=== PATIENT | male | born 1985 | race Caucasian/White ===

== ENCOUNTER 2019-01-16 20:44 | Emergency (ER) | payer MEDICAID, OTHER ==
[~2019-01-16] VITALS: Ht 193 cm; Wt 163.3 kg
[2019-01-16] MEDS ORDERED: TERB30CR22 TP (22:00)
[2019-01-16 22:13] VITALS: BP 158/84
== END 2019-01-16 22:10 | disposition home or self-care (01) ==
LOC: ER 20:45
DX: B35.6 Tinea cruris (principal); E66.9 Obesity, unspecified; Z79.899 Other long term (current) drug therapy; Z98.890 Other specified postprocedural states
CPT/HCPCS: 99283

== ENCOUNTER 2019-01-31 23:55 | Emergency (ER) | payer OTHER ==
[~2019-01-31] VITALS: Ht 193 cm; Wt 170.4 kg
[~2019-01-31 23:55] MED LIST: TERB30CR22 TP
[2019-02-01 01:36] VITALS: BP 138/92
== END 2019-02-01 00:40 | disposition home or self-care (01) ==
LOC: ER 23:56
DX: R21 Rash and other nonspecific skin eruption (principal); L98.9 Disorder of the skin and subcutaneous tissue, unspecified; Z98.890 Other specified postprocedural states; Z79.899 Other long term (current) drug therapy
CPT/HCPCS: 99281

== ENCOUNTER 2021-05-09 18:32 | Emergency (ER) | payer SELFPAY ==
[~2021-05-09] VITALS: Ht 193 cm; Wt 135.8 kg
[~2021-05-09 18:32] MED LIST changes: -TERB30CR22 TP; +TERB30CR8 TP
[2021-05-09 18:33] VITALS: BP 170/100
[2021-05-09] MEDS ORDERED: LIDOcaine 1% 30ml preserv. free vial IJ ONE (18:40)
[2021-05-09] MEDS ORDERED: TETanus/Pertussis (Acell)/Diphther VAC/PF (Tdap-Adult) 0.5ml syringe IMVAC ONE (18:40)
== END 2021-05-09 19:42 | disposition home or self-care (01) ==
LOC: ER 18:32
DX: S61.012A Laceration without foreign body of left thumb without damage to nail, initial encounter (principal); Z98.890 Other specified postprocedural states; Z79.899 Other long term (current) drug therapy; Z20.3 Contact with and (suspected) exposure to rabies; W45.8XXA Other foreign body or object entering through skin, initial encounter; Y93.89 Activity, other specified; Y92.89 Other specified places as the place of occurrence of the external cause; Y99.8 Other external cause status
CPT/HCPCS: 12001; 73120; 90471; 90715; 99283

== ENCOUNTER 2022-09-08 13:14 | Emergency (ER) | payer MEDICAID ==
[~2022-09-08] VITALS: Ht 193 cm; Wt 181.8 kg
[2022-09-08 13:20] VITALS: BP 177/123
[2022-09-08] MEDS ORDERED: IBUP-1986 PO (14:44)
[2022-09-08] MEDS ORDERED: CYCL-1 PO (14:44)
== END 2022-09-08 15:01 | disposition home or self-care (01) ==
LOC: ER 13:14
DX: M54.50 Low back pain, unspecified (principal)
CPT/HCPCS: 99283

== ENCOUNTER 2023-02-03 13:42 | Emergency (ER) | payer SELFPAY ==
[~2023-02-03] VITALS: Ht 195.6 cm; Wt 188.6 kg
[~2023-02-03 13:42] MED LIST changes: +CYCL-1 PO; +IBUP-1986 PO
[2023-02-03 14:08] LABS: BASOPHILS # (AUTO) 0.1 X10'3 (0-0.2); BASOPHILS % (AUTO) 0.5 % (0-1); EOSINOPHILS # (AUTO) 0.4 X10'3 (0-0.9); EOSINOPHILS % (AUTO) 3.2 % (0-6); HEMATOCRIT 44.5 % (42.0-52.0); LYMPHOCYTES # (AUTO) 4.3 X10'3 (1.1-4.8); LYMPHOCYTES % (AUTO) 37.8 % (21-51); MEAN CORPUSCULAR HEMOGLOBIN 30.5 PG (27.0-31.0); MEAN CORPUSCULAR HGB CONC 33.6 g/dL (33.0-36.5); MEAN CORPUSCULAR VOLUME 90.7 FL (78-98); MEAN PLATELET VOLUME 7.3 FL (7.4-10.4); MONOCYTES # (AUTO) 1.3 X10'3 (0-0.9); MONOCYTES % (AUTO) 11.9 % (2-12); NEUTROPHILS # (AUTO) 5.3 X10'3 (1.8-7.7); NEUTROPHILS % (AUTO) 46.6 % (42-75); PLATELET COUNT 297 X10'3 (140-440); RED BLOOD COUNT 4.91 X10'6 (4.70-6.10); RED CELL DISTRIBUTION WIDTH 13.1 % (11.5-14.5); WHITE BLOOD COUNT 11.3 X10'3 (4.5-11.0)
[2023-02-03] MEDS ORDERED: hydrALAZINE 20mg/ml inj. IV ONE (14:25)
[2023-02-03 14:27] LABS: ALANINE AMINOTRANSFERASE 41 U/L (12-78); ALBUMIN 3.7 G/DL (3.4-5.0); ALBUMIN/GLOBULIN RATIO 0.9 (1.1-1.5); ALKALINE PHOSPHATASE 95 IU/L (46-116); ANION GAP 8 (8-16); ASPARTATE AMINO TRANSFERASE 24 U/L (10-37); BILIRUBIN,TOTAL 0.3 MG/DL (0.1-1.0); BLOOD UREA NITROGEN 12 MG/DL (7-18); BUN/CREATININE RATIO 14.1 (10.0-20.0); CHLORIDE 102 MMOL/L (99-107); CREATININE 0.85 MG/DL (0.60-1.10); GLUCOSE 98 MG/DL (70-104); POTASSIUM 3.7 MMOL/L (3.5-5.1); SODIUM 138 MMOL/L (135-145); TOTAL CARBON DIOXIDE 27.6 MMOL/L (24-32); TOTAL PROTEIN 7.7 G/DL (6.4-8.2); eCRCL 147 ML/MIN; eGFR > 90 ML/MIN
[2023-02-03 14:33] LABS: PRO BRAIN NATRIURETIC PEPTIDE 178 PG/ML (0-125)
[2023-02-03 14:41] VITALS: PULSE 87; RESP 17; TEMP 97.7; O2SAT 99
[2023-02-03] MEDS ORDERED: AMLO5TAB4 PO (15:36)
[2023-02-03 15:39] VITALS: BP 182/122
== END 2023-02-03 15:50 | disposition home or self-care (01) ==
LOC: ER 13:43
DX: I10 Essential (primary) hypertension (principal); H53.8 Other visual disturbances; Z79.899 Other long term (current) drug therapy
CPT/HCPCS: 36415; 71045; 80053; 83880; 84484; 85025; 93005; 96374; 99285; J0360

== ENCOUNTER 2024-04-12 20:23 | Emergency (ER) | payer MEDICAID ==
[~2024-04-12] VITALS: Ht 193 cm; Wt 178.3 kg
[~2024-04-12 20:23] MED LIST changes: +AMLO5TAB4 PO
[2024-04-12 20:36] VITALS: BP 223/153; TEMP 98
[2024-04-12] MEDS ORDERED: PENI500T2 PO (20:56)
[2024-04-12] MEDS ORDERED: HYDR-3965 PO (20:56)
[2024-04-12] MEDS ORDERED: IBUP-1984 PO (20:56)
[2024-04-12] MEDS: HYDROcodone/acetaminophen 5mg/325mg tablet PO ONE (21:03)
[2024-04-12] MEDS: ibuprofen tablet 400 MG TABLET PO ONE (21:03)
[2024-04-12] MEDS: penicillin V potassium 500mg tablet PO STA (21:13)
[2024-04-12 21:20] VITALS: PULSE 80; RESP 18; O2SAT 98
== END 2024-04-12 21:22 | disposition home or self-care (01) ==
LOC: ER 20:24
DX: K04.7 Periapical abscess without sinus (principal); Z98.890 Other specified postprocedural states
CPT/HCPCS: 99284

== ENCOUNTER 2024-12-07 21:37 | Inpatient (IN) | payer MEDICAID, OTHER ==
[~2024-12-07] VITALS: Ht 193 cm; Wt 185.2 kg
--- NOTE | 2024-12-07 21:55 | ELECTROCARDIOGRAPH REPORT ---
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
--- NOTE | 2024-12-07 22:29 | RADIOLOGY REPORT ---
CHEST RADIOGRAPH Indication: CP Technique: 1 view Comparison: DI CHEST,SINGLE VIEW on DOS: 02/03/23 FINDINGS: Lines and Tubes: None. Lungs/Pleura: No focal consolidation, pleural effusion or pneumothorax. Interstitial opacities appear unchanged. Cardiomediastinum: Unremarkable. Other: No acute osseous abnormality. IMPRESSION: 1. No acute cardiopulmonary abnormality.
[2024-12-07 22:30] LABS: MEAN PLATELET VOLUME 7.6 FL (7.4-10.4); RED CELL DISTRIBUTION WIDTH 13.8 % (11.5-14.5)
[2024-12-07 22:54] LABS: CREATININE 1.14 MG/DL (0.60-1.10); PRO BRAIN NATRIURETIC PEPTIDE 1184 PG/ML (0-125); TOTAL CARBON DIOXIDE 27.7 MMOL/L (24-32); eCRCL 105 ML/MIN; eGFR 71 ML/MIN
--- NOTE | 2024-12-07 23:25 | Physician Documentation ---
History of Present Illness ~ Chief Complaint: Hypertension Stated Complaint: HIGH BLOOD PRESSURE Time Seen by MD: 23:13 Primary Medical Doctor: NONE HPI Patient presents to the emergency room for concerns of blood pressure. Patient has history of high blood pressure was seen a proximally one year ago that has given some amlodipine but never followed up. He notes that has day-to-day blood pressure ranges from about 242-90 systolic. He did not noticed that over the past few days he has had some blurred vision which got worse in the lobby. Significant other at bedside also endorses that has not quite acting like himself. Denies chest pain or headache. Medication Reconciliation Allergies: Coded Allergies: No Known Allergies (Unverified , 12/07/24) Scheduled Amlodipine Besylate (Norvasc), 1 TAB PO DAILY Cyclobenzaprine* (Cyclobenzaprine*), 1 TAB PO Q8H Ibuprofen (Ibuprofen), 1 TAB PO Q8H Terbinafine Hcl (Terbinafine Hcl), 30 GM TP BID Past Medical History Past Medical History: No Pertinent History Past Surgical History: orthopedic surgeries Drug Use: none Lives with: Spouse Lives In: Home Review of Systems ROS All review of systems negative except as per HPI Physical Exam Vital Signs: Temperature: 97.4, Source: Oral, Heart Rate: 104, Respiratory Rate: 16, BP: 211/143, Pulse Oximetry: 97, Weight: 186.360 Oxygen Flow Rate: 0 Physical Exam General: Patient is awake, alert, oriented x4 in no acute distress. Anxious Head: Normocephalic and atraumatic. Eyes: Conjunctival normal. EOMI. PERRL. ENT: Mucous membranes moist. Neck: Supple, trachea is midline. Chest: Clear to auscultation bilaterally without rales, rhonchi, or wheezes. There is no accessory muscle use or retractions. Cardiac: RRR without murmurs, gallops, or rubs. Abd: Soft, nondistended, nontender, with normoactive bowel sounds. No guarding, rebound, or rigidity. Extremities: Normal strength. Normal range of motion. No deformities or edema. Back: No midline spinal or CVA tenderness. Skin: Warm and dry with no significant rash appreciated. Neuro: Cranial nerves II-XII grossly intact. No focal neuro deficits. Progress Progress Note I have personally spoken with the travel agency manager regarding patient's hypertensive emergency. She requests CT scan of the head given patient's visual changes Results/Orders Results/Orders Orders - CARLYLE NOLASCO MD Chest,Single View (12/07/24 22:09) Monitor (12/07/24 21:57) Saline Lock (12/07/24 21:57) Oxygen (12/07/24 21:57) Hs Troponin I W Calculations (12/07/24 23:57) Hs Troponin I W Calculations (12/08/24 00:57) Nicardipine-Ns 40mg/200ml Ivpb (Cardene- (12/07/24 23:20) Completed Orders - CARLYLE NOLASCO MD Electrocardiogram (12/07/24 ) Chest,Single View (12/07/24 22:09) Cbc/Diff (12/07/24 21:57) BMP (12/07/24 21:57) PBNP (12/07/24 21:57) Hs Troponin I W Calculations (12/07/24 21:57) Hydralazine Tablet (Apresoline 10mg Tabl (12/07/24 22:00) Hydralazine Tablet (Apresoline 10mg Tabl (12/07/24 22:00) Medications Received in ER Medications (Trade) Dose Ordered Sig/Kristina Route PRN Reason Start Time Stop Time Status Last Admin Dose Admin (Apresoline 10mg tablet) 10 mg ONCE PO 12/07/24 22:00 12/07/24 22:08 DC 12/07/24 22:03 10 MG Vital Signs 12/07/24 12/07/24 12/07/24 12/07/24 21:46 22:03 22:52 23:17 Temp 97.4 Pulse 106 102 80 104 Resp 16 18 16 B/P (MAP) 223/153 205/134 (157) 211/143 (165) Pulse Ox 99 99 97 O2 Flow Rate 0 Laboratory Tests Test 12/07/24 22:10 White Blood Count 10.5 Red Blood Count 4.76 Hemoglobin 14.5 Hematocrit 42.3 Mean Corpuscular Volume 88.9 Mean Corpuscular Hemoglobin 30.6 Mean Corpuscular Hemoglobin Concent 34.4 Red Cell Distribution Width 13.8 Platelet Count 276 Mean Platelet Volume 7.6 Neutrophils (%) (Auto) 71.7 Lymphocytes (%) (Auto) 18.0 L Monocytes (%) (Auto) 7.9 Eosinophils (%) (Auto) 1.6 Basophils (%) (Auto) 0.8 Neutrophils # (Auto) 7.5 Lymphocytes # (Auto) 1.9 Monocytes # (Auto) 0.8 Eosinophils # (Auto) 0.2 Basophils # (Auto) 0.1 CBC Comment Sodium Level 140 Potassium Level 3.5 Chloride Level 102 Carbon Dioxide Level 27.7 Anion Gap 10 Blood Urea Nitrogen 20 H Creatinine 1.14 H Estimated GFR/1.73 m2 71 BUN/Creatinine Ratio 17.5 Glucose Level 147 H Calcium Level 8.6 Troponin I High Sensitivity 95 *H Pro-B-Type Natriuretic Peptide 1184 H Albumin 3.6 Chemistry Comments EKG/XRAY/CT/US/VASC/MRI EKG : Additional Comment EKG interpreted by myself shows time of 03/21/2042, rate 106, sinus tachycardia, normal axis, nonspecific ST-T changes Chest X-Ray : Additional Comments Exam: CHEST,SINGLE VIEW CHEST RADIOGRAPH Indication: CP Technique: 1 view Comparison: DI CHEST,SINGLE VIEW on DOS: 02/03/23 FINDINGS: Lines and Tubes: None. Lungs/Pleura: No focal consolidation, pleural effusion or pneumothorax. Interstitial opacities appear unchanged. Cardiomediastinum: Unremarkable. Other: No acute osseous abnormality. IMPRESSION: 1. No acute cardiopulmonary abnormality. Medical Decision Making Findings Patient presented to the emergency room for evaluation of blood pressure. Differentials include but are not limited to hypertensive urgency hypertensive emergency, uncontrolled hypertension, end-organ damage, kidney failure therefore emergent labs ordered. Labs concerning for elevation of troponins and decreased renal function compared to previous. Along with the patient's blood pressure and changes of vision and mild alteration in patient's personality he is suffering from hypertensive emergency and Cardene drip has been initiated and we will admit to the ICU. He had denies any chest pain and he had not feel patient is suffering from ACS but rather demand ischemia from hypertensive emergency. For this reason I have not started heparin. Aspirin administered. Departure Admitted to Inpatient Unit: yes, to travel agency manager Impression: Primary Impression: Hypertensive emergency Additional Impression: Elevated troponin Condition: Critical Referrals: NO PRIMARY CARE PROVIDER (PCP) Critical Care Note Total Time (mins): 45 Critical Care Note The very real possibility of a deterioration of this patient's condition re quired the highest level of my preparedness for sudden, emergent intervention. I provided critical care services, which included medication orders, frequent reevaluations of the patient's condition and response to treatment, ordering and reviewing test results, and discussing the case with various consultants. Excludes time spent performing separately billable procedures. The critical care time associated with the care of the patient was 45 minutes not counting procedures Signature Scribe Signature: No scribe Attestation: The note accurately reflects work and decisions made by me.Carlyle Nolasco MD 12/07/24 23:25 CARLYLE NOLASCO MD Dec 07, 2024 23:25
[2024-12-08] VITALS (28 sets, daily range): BP systolic 128–164; BP diastolic 67–116; PULSE 74–95; RESP 10–49; TEMP 98–98.6; O2SAT 89–99
[2024-12-08] MEDS: niCARDipine-NS 40mg/200ml IVPB 200 ML IV SCH (00:03)
--- NOTE | 2024-12-08 00:08 | RADIOLOGY REPORT ---
EXAM: CT CT HEAD INDICATION: vision changes TECHNIQUE: CT of the head without intravenous contrast. Radiation Dose : 1. Head: CT Dose: CTDI volume is 69 mGy. Dose-length product is 1373 mGy*cm The dose indicators for CT are the volume Computed Tomography (CT) Dose Index (CTDIvol) and the Dose Length Product (DLP), and are measured in units of mGy and mGy-cm, respectively. These indicators are not patient dose, but values generated from the CT scanner acquisition factors. The report includes radiation exposure data for exposures received during this examination. COMPARISON: None FINDINGS: Brain: No acute hemorrhage, mass effect, or cerebral edema. CSF Spaces: Size and morphology within normal limits. Bones/Soft Tissues: No acute findings. Orbits/Sinuses/Mastoids: Unremarkable as visualized. IMPRESSION: 1. No acute intracranial abnormality. Radiation optimization: All CT scans at this facility use at least one of these dose optimization techniques: automated exposure control mA and/or kV adjustment per patient size (includes targeted exams where dose is matched to clinical indication) or iterative reconstruction.
[2024-12-08] MEDS ORDERED: ondansetron/PF 4mg/2ml inj IV PRN (02:55)
--- NOTE | 2024-12-08 03:11 | HISTORY AND PHYSICAL ---
History of Present Illness End CC ~ Admission Diagnosis:.: hypertensive emergency History of Present Illness 39 year old male with htn non compliant with meds admitted with hypertensive urgency. The patient was found to have a SBP of >200 with complaints of blurry vision. He was started on a nicardipine infusion. Allergies: Coded Allergies: No Known Allergies (Unverified , 12/07/24) Home Medications Home Medications Active Past Medical History Past Medical History: No Pertinent History, Hypertension Past Surgical History Past Surgical History: no surgical history, orthopedic surgeries Past Social History Smoking: Non-Smoker Drug Use: None Lives with: Spouse Lives In: Home Advance Care Planning Advanced Care planning: N/A Review of Systems All Other Systems at this time: Reviewed and Negative Physical Exam Last Vital Signs recorded: Temperature: 97.4, Source: Oral, Heart Rate: 100, Respiratory Rate: 43, BP: 176/105, Pulse Oximetry: 94, Weight: 186.360 Results Diagram Lab Result Diagram: 12/07/24 2210 12/07/242209 Assessment/Plan Additional Plan Plan: start nicardipine infusion with goal SBP 160-180 restart home amlodipine counseling on compliance with medications lovenox for dvt ppx CCT 51 min using HIPPA compliant A/V technology MADAN NARANJO MD Dec 08, 2024 03:10
[2024-12-08] MEDS: niCARDipine-NS 40mg/200ml IVPB 200 ML IV PRN (06:47)
--- NOTE | 2024-12-08 11:15 | PROGRESS NOTE- Residence ---
Progress Note - Resident Providers to CC Resident Creating Document: TALON ANAND, RES ~ Antibiotic Timeout Antibiotic Ordered?: No Subjective Patient seen and examined at the bedside today. Patient reports that the blurring of his vision and headaches have improved. Currently reported that he has a some/minimal amount of headache at the moment. The patient also reports that he has had symptoms of worsening shortness of breath with a orthopnea, paroxysmal nocturnal dyspnea since the past few months that has been worsening. He mentioned that he was 1st informed about having high blood pressure almost a year ago at the ER but has not started any medications since then and has not established with a primary care physician. Reported that he has been monitoring his blood pressure and is trying to eat healthy and lose weight to control his blood pressure. He currently denies any chest pain, palpitations, dizziness, nausea, vomiting. Objective Vital Signs Date Time Temp Pulse Resp B/P (MAP) Pulse Ox O2 Delivery O2 Flow Rate FiO2 12/08/24 10:00 76 10 96 Nasal Cannula 2.0 12/08/24 09:00 147/91 (109) 12/08/24 08:00 98.2 Result Diagram: 12/07/24220912/07/242209 General: Obese male. Awake and Alert, no acute distress. HEENT: Conjunctiva pink, Sclera clear, Mucus Membranes moist. Neck: Supple without masses and tenderness. Resp: Unlabored. Lungs clear to auscultation bilaterally. Heart: Regular Rate and rhythm, normal S1 and S2 without murmur, rub or gallop. Abdomen: Soft and non tender no organomegaly Extremities: No cyanosis,clubbing or edema. Skin: Warm and Dry. Neurology: Cranial nerves 2-12 intact. No motor and sensory deficits. Musculoskeletal: No deformities or restricted range of movements. Psychiatric: Normal mood and affect. Assessment Assessment 39 years old male with history of hypertension is admitted in the ICU for the management of acute hypertensive emergency. The patient was started on IV nicardipine drip. His blood pressure is currently well-controlled and is planned to be downgraded from the ICU to the PCU. Plan Plan Hypertensive emergency Patient reported symptoms of dizziness, blurry vision and headaches prior to the arrival. CT scan of the head was done which was negative for any acute intracranial abnormalities. Chest x-ray shows bilateral interstitial opacities. The patient's CBC and CMP does not show significant abnormalities. Follow up with the ECHO. He was started on IV nicardipine drip at 5 mg/hour. Starting the patient on a p.o. amlodipine 10 mg daily and labetalol 200 mg b.i.d. The patient's blood pressure is currently under control. We will discontinue IV nicardipine drip and monitor. Spoke to the patient about lifestyle modifications including diet and exercise. Also spoke with the patient regarding the importance of establishing a PCP and maintaining compliance with the antihypertensive medication. Type 2 UT Most likely due to demand ischemia in view of hypertensive emergency. Continue close monitoring of the patient's vitals. Continue telemetry monitoring. CODE STATUS: Full code DVT prophylaxis: Lovenox GI prophylaxis: None Diet: Heart healthy Disposition: Patient is stable, vitals under control. He is planned to be downgraded to the PCU for further care and evaluation. Talon Anand MD Internal Medicine Resident, PGY-3 Date of Service: Dec 08, 2024 Billing Provider: LAKESHIA HUTSON MD,TALON TOBAR, RES Dec 08, 2024 11:15
--- NOTE | 2024-12-08 11:17 | PROGRESS NOTE- Residence ---
Progress Note - Resident Providers to CC ~ Objective Vital Signs Date Time Temp Pulse Resp B/P (MAP) Pulse Ox O2 Delivery O2 Flow Rate FiO2 12/08/24 10:00 76 10 96 Nasal Cannula 2.0 12/08/24 09:00 147/91 (109) 12/08/24 08:00 98.2 Result Diagram: 12/07/24220912/07/242209 Date of Service: Dec 08, 2024 Billing Provider: CARA BLAS, RES Dec 08, 2024 11:17
[2024-12-08] MEDS: hydrALAZINE 20mg/ml inj. IV PRN ×2 (13:42→16:08)
[2024-12-08] MEDS ORDERED: NO HOME MEDS (16:18)
--- NOTE | 2024-12-08 17:40 | PROGRESS NOTE ---
Daily Progress Note Providers to CC Chief complaint, elevated blood pressure, headaches ~ Central Line/PICC still needed: No Marin-Non Protocol Marin Indications Met/Not Met: F/C Indications Not Met Antibiotic Timeout Antibiotic Ordered?: Yes MRSA Education MRSA Education Provided to pt: Yes Subjective As above Objective Vital Signs Date Time Temp Pulse Resp B/P (MAP) Pulse Ox O2 Delivery O2 Flow Rate FiO2 12/08/24 17:06 98.0 88 11 162/113 (129) 98 Room Air 12/08/24 11:45 0.0 Vital signs, stable ,afebrile. High blood pressure noticed Pulse Oximetry reflects adequate oxygenation. BMI is forty-nine, weight 185 kg General: well developed, well nourished. Awake , alert, and oriented x4, resting comfortably in the bed, in no acute distress . Skin: Warm, dry, no pallor, no rash or petechiae. HEENT: Atraumatic, normocephalic, EOMI, anicteric sclera B; pink conjunctiva; PERRLA, normal oropharynx, moist oral and nasal mucosa. Tympanic membrane , nose , throat clear. Neck: Trachea midline. Supple, full range of motion, no JVD, bruit , hepatojugular reflex , lymphadenopathy or masses, or other lesions Cardiac: High blood pressure noticed, Regular rhythm, regular rate no murmurs, rubs, or gallops. Normal S1 and S2, no S3 noticed. PMI is normal. Respiratory: Equal breath sounds bilaterally, no tachypnea; lungs clear to auscultation bilaterally, no wheezing ,rub or rales, or crackles. Chest wall is symmetric and without deformity. No signs of trauma. Chest wall is nontender. No signs of respiratory distress. Resonance is normal upon percussion bilaterally. Gastrointestinal: Abdomen symmetric, non-distended, soft, non-tender, normal bowel sounds x4 quadrant, normoactive, no hepatosplenomegaly , no masses , no bruit, no flank pain bilaterally. No voluntary guarding, rebound, or rigidity. No tenderness to percussion. No pulsatile masses. Equal femoral pulses. No Campbell's sign or McBurney point tenderness. Back; no CVA tenderness bilaterally, no deformities. Neck and back are without deformity as well. No tenderness noted on palpation of the spinous processes. Spinous processes are midline. Cervical, thoracic, and lumbar paraspinal muscles are not tender and are without spasm. : normal external genitalia, without lesions, swelling, masses or tenderness. Musculoskeletal: Extremities, normal range of motion, non-tender, muscle strength 5/5 x 4. Negative Homans signs bilaterally on lower extremity. Distal pulses full symmetrical, no clubbing, cyanosis , edema. Neurological: Speech is clear, alert, and oriented x 4. No motor or sensory deficit, deep tendon reflexes normal, cerebellar intact. Cranial nerves II-XII intact. Psych: Alert and or appropriate, normal affect. Vascular: Good distal pulses, which are equal x4; capillary refill less than 2 seconds. Lymphatic, no lymphadenopathy. Result Diagram: 12/07/24220912/07/242209 Problem\Assessment\Plan Assessment/ Plan Morbid obesity BMI 49 Hypertensive emergency Patient reported symptoms of dizziness, blurry vision and headaches prior to the arrival. CT scan of the head was done which was negative for any acute intracranial abnormalities. MRI of the head pending Chest x-ray shows bilateral interstitial opacities. The patient's CBC and CMP does not show significant abnormalities. Follow up with the ECHO. He was started on IV nicardipine drip at 5 mg/hour. Starting the patient on a p.o. amlodipine 10 mg daily and labetalol 200 mg b.i.d. The patient's blood pressure is currently under control. We will discontinue IV nicardipine drip and monitor. Spoke to the patient about lifestyle modifications including diet and exercise. Also spoke with the patient regarding the importance of establishing a PCP and maintaining compliance with the antihypertensive medication. Diastolic CHF in exacerbation, patient on lisinopril, Lasix Type 2 ID, on aspirin, heparin prophylactic dose, lisinopril Most likely due to demand ischemia in view of hypertensive emergency. Continue close monitoring of the patient's vitals. Continue telemetry monitoring. Additional lab work pending Nutrition consult CODE STATUS: Full code DVT prophylaxis: Lovenox GI prophylaxis: None Diet: Heart healthy Sepsis Screening Reassessment Date: Dec 08, 2024 Date of Service: Dec 08, 2024 Billing Provider: TYRA CHOWDHURY MD Common Visit Codes: [id number] INP/OBS CARE(HIGH) TYRA CHOWDHURY MD Dec 08, 2024 17:40
[2024-12-08 18:40] LABS: PHOSPHORUS 4.1 MG/DL (2.3-4.5)
--- NOTE | 2024-12-08 18:44 | CARDIOLOGY REPORT ---
APPROVED REPORT EXAM: Comprehensive 2D, Doppler, and color-flow Echocardiogram. Patient Location: 2006 Heart Rate: 91 bpm Indications Cardiomegaly HS Troponin: 95, 95, 90, 88 ProBNP: 1184 NO GEAR HOBBER NO Previous ECHO 2D Dimensions LA Diam 4.5 cm IVSd 1.6 (0.7-1.1cm) LVDd 4.6 cm PWd 1.5 (0.7-1.1cm) IVSs 1.7 (0.8-1.2cm) LVDs 3.2 (2.5-4.0cm) PWs 2.5 (0.8-1.2cm) LVOT Diameter 2.26 (1.8-2.4cm) LVEF(%) 59.6 (>50%) Ao Asc Diam. 3.35 cm IVC 20.98 mm FS (%) 31.6 % SV 59.3 ml CO 5.4 L/min M-Mode Dimensions Aortic Root 4.37 (2.2-3.7cm) Aortic Cusp Exc 2.16 (1.5-2.0cm) MV EPSS 0.8 (<0.5cm) Aortic Valve AoV Peak Colby. 161.8 cm/s AoV VTI 28.9 cm AO Peak GR. 10.5 mmHg AO Mean GR. 6 mmHg LVOT VTI 24.85 cm LVOT Peak Colby. 111.3 cm/s JUSTIN(VTI)/BSA 3.46 cm2/m2 JUSTIN (VTI) 3.46 cm2 AV DI 0.86 % Mitral Valve MV E Velocity 85.2 cm/s MV Peak Gr. 5 mmHg MV DECEL TIME 120 ms MV A Velocity 43.3 cm/s MV PHT 52 ms E/A Ratio 2.0 MVA (PHT) 4.23 cm2 MV VMax 107.9 cm/s TDI Lateral E' P. V 9.88 cm/s E/Lateral E' 8.6 Tricuspid Valve TR P. Velocity 251 cm/s RAP ESTIMATE 10 mmHg TR Peak Gr. 25 mmHg RVSP 35 mmHg LEFT VENTRICLE Normal LV size and function. Moderate concentric hypertrophy. LVEF is 60-65%. RIGHT VENTRICLE RV is normal size and function. Elevated right heart pressures with an RVSP of 35 mmHg. ATRIA Left atrium is moderately dilated. AORTIC VALVE Trileaflet AV appears mildly sclerotic without stenosis. No insufficiency. MITRAL VALVE Mild mitral annular calcification without stenosis. Trivial regurgitation. TRICUSPID VALVE The tricuspid valve is normal in structure. PULMONIC VALVE Pulmonic valve is grossly normal in structure with physiologic insufficiency. GREAT VESSELS The aortic root is normal in size. The ascending aorta is normal in size. The IVC is normal in size and collapses >50% with inspiration. PERICARDIUM Normal pericardium. No effusion. Other Information Study Quality: Adequate Conclusion Normal LV size and function. Moderate concentric hypertrophy. LVEF is 60-65%. RV is normal size and function. Elevated right heart pressures with an RVSP of 35 mmHg. Left atrium is moderately dilated. Trileaflet AV appears mildly sclerotic without stenosis. No insufficiency. Mild mitral annular calcification without stenosis. Trivial regurgitation. The tricuspid valve is normal in structure. Normal pericardium. No effusion.
[2024-12-08] MEDS: enoxaparin 40mg/0.4ml syringe SQ SCH (20:00)
--- NOTE | 2024-12-08 21:18 | [facility] CONSULT REPORT ---
[facility] Procedure Note [facility] Procedure Note Consult [facility] Note # Demographics Consult Type: General Neurology Patient Location: Inpatient First Name: Mario Last Name: Dilip Date of : 1985 Age: 39 Gender: Male Facility: [facility] Time of Initial Page (): 12/08/2024 20:39 First Contact with Site (): 12/08/2024 20:39 # HPI History: LKN- yesterday around 1500 Patient came in with headache, blurry vision, dizziness and numbness on the left side. Patient currently admitted for hypertensive crisis. Neurology was consulted for stroke evaluation. H/O HTN # Scores Time of exam and NIHSS (): 12/08/2024 21:00 Level of Consciousness 1a: [0] = Alert; keenly responsive LOC Questions 1b: [0] = Answers both questions correctly LOC Commands 1c: [0] = Performs both tasks correctly Best Gaze 2: [0] = Normal Visual 3: [0] = No visual loss Facial Palsy 4: [0] = Normal symmetrical movements Motor Arm Left 5a: [0] = No drift Motor Arm Right 5b: [0] = No drift Motor Leg Left 6a: [1] = Drift Motor Leg Right 6b: [0] = No drift Limb Ataxia 7: [0] = Absent Sensory 8: [0] = Normal Best Language 9: [0] = No aphasia Dysarthria 10: [0] = Normal Extinction and Inattention 11: [0] = No abnormality NIHSS Total: 1 # Assessment Impression: - Ischemic Stroke (Acute) NIH stroke scale is 1. Patient was noted to have subtle left leg weakness. Overall he is a well-built rakel and I suspect most likely reason for his initial symptoms of headache and dizziness were hypertensive emergency. But considering this focal finding, it is reasonable to get an MRI brain without contrast to rule out a stroke. Differential Diagnosis: - Stroke Mimic # Plan Thrombolytic/Intervention: NOT IV Thrombolysis or IA Intervention candidate Thrombolytic Exclusion: > 4.5 hours Intraarterial Exclusion: - no large vessel occlusion (LVO) Target Blood Pressure: - SBP < 180 - SBP > 140 Labs: - hemoglobin A1c - lipid panel - comprehensive metabolic panel - CBC - ua - ESR Imaging: (urgency: routine): - MRI Brain without contrast - US carotid Diagnostic Test: - echo with bubble study Therapy/Evaluation: - NPO until swallow evaluation - PT/OT evaluation Medication: - aspirin 81 mg PLUS clopidogrel (Plavix) 75 mg for 21 days, then monotherapy therafter - start statin with goal of LDL < 70 Other: - If patient has any neurological deterioration please call me back immediately - permissive hypertension - LDL < 70 - telemetry monitoring - will need event monitor or loop recorder as outpatient if atrial fibrillation not found as inpatient - neurology referral as outpatient - I have discussed my recommendations with the referring provider - would not pursue stroke work-up if MRI is negative Disposition: continue admission # Demographics First Name: Mario Last Name: Dilip Facility: [facility] Neuro Consult Order placed for: Yes VALARIE PARR MD Dec 08, 2024 21:17
[2024-12-09] VITALS (8 sets, daily range): BP systolic 105–145; BP diastolic 57–104; PULSE 70–79; RESP 11–19; TEMP 97.9–98.4; O2SAT 93–96
[2024-12-09] MEDS ORDERED: PERFLUTREN PROTEIN-A MICROSPHR (Optison) 0.22 MG/ML 3ML VIAL IV ONE (05:25)
[2024-12-09] MEDS: aspirin 81mg, enteric-coated 1 TAB TABLET.DR PO SCH (08:33)
[2024-12-09 09:37] LABS: URINE AMPHETAMINE SCREEN NEGATIVE (Neg); URINE BARBITUATE SCREEN NEGATIVE (Neg); URINE BENZODIAZEPINES SCREEN NEGATIVE (Neg); URINE CANNABINOID SCREEN NEGATIVE (Neg); URINE COCAINE SCREEN NEGATIVE (Neg); URINE METHADONE SCREEN NEGATIVE (Neg); URINE OPIATE SCREEN NEGATIVE (Neg); URINE PHENCYCLIDINE SCREEN NEGATIVE (Neg)
--- NOTE | 2024-12-09 09:54 | VASCULAR REPORT ---
CLINICAL HISTORY: Stroke TECHNIQUE: Shetty-scale, Color and Duplex Doppler imaging of the bilateral carotid systems was performed. COMPARISON: None Findings: Right Carotid system: There is no plaque present in the right carotid system. Left Carotid system: There is no plaque present in the left carotid system. The following flow velocities were obtained (cm/sec). Right Carotid System: ICA PSV: 101 cm/sec ICA PDV: 22 cm/sec ICA/CCA Ratio: 1.2 Left Carotid System: ICA PSV: 78 cm/sec ICA PDV: 33 cm/sec ICA/CCA Ratio: 0.8 The right and left common carotid and external carotid arteries are patent. There is antegrade flow in both vertebral arteries and external carotid arteries. IMPRESSION: NORMAL RIGHT CAROTID SYSTEM. NORMAL LEFT CAROTID SYSTEM. Estimation of carotid stenosis is based on velocity parameters that correlate the residual internal carotid diameter with that of the more distal vessel in accordance with the [place] Symptomatic Carotid Endarterectomy Trial (NASCET).
--- NOTE | 2024-12-09 19:25 | PROGRESS NOTE ---
Daily Progress Note Providers to CC ~ no new complaint today resting comfortably in the bed Central Line/PICC still needed: No Marin-Non Protocol Marin Indications Met/Not Met: F/C Indications Not Met Antibiotic Timeout Antibiotic Ordered?: No MRSA Education MRSA Education Provided to pt: No Subjective As above Objective Vital Signs Date Time Temp Pulse Resp B/P (MAP) Pulse Ox O2 Delivery O2 Flow Rate FiO2 12/09/24 15:00 98.4 79 11 113/65 (81) 96 Room Air 12/08/24 11:45 0.0 Vital signs, stable ,afebrile. Pulse Oximetry reflects adequate oxygenation. General: well developed, well nourished. Awake , alert, and oriented x4, resting comfortably in the bed, in no acute distress . Skin: Warm, dry, no pallor, no rash or petechiae. HEENT: Atraumatic, normocephalic, EOMI, anicteric sclera B; pink conjunctiva; PERRLA, normal oropharynx, moist oral and nasal mucosa. Tympanic membrane , nose , throat clear. Neck: Trachea midline. Supple, full range of motion, no JVD, bruit , hepatojugular reflex , lymphadenopathy or masses, or other lesions Cardiac: Regular rhythm, regular rate no murmurs, rubs, or gallops. Normal S1 and S2, no S3 noticed. PMI is normal. Respiratory: Equal breath sounds bilaterally, no tachypnea; lungs clear to auscultation bilaterally, no wheezing ,rub or rales, or crackles. Chest wall is symmetric and without deformity. No signs of trauma. Chest wall is nontender. No signs of respiratory distress. Resonance is normal upon percussion bilaterally. Gastrointestinal: Abdomen symmetric, non-distended, soft, non-tender, normal bowel sounds x4 quadrant, normoactive, no hepatosplenomegaly , no masses , no bruit, no flank pain bilaterally. No voluntary guarding, rebound, or rigidity. No tenderness to percussion. No pulsatile masses. Equal femoral pulses. No Campbell's sign or McBurney point tenderness. Back; no CVA tenderness bilaterally, no deformities. Neck and back are without deformity as well. No tenderness noted on palpation of the spinous processes. Spinous processes are midline. Cervical, thoracic, and lumbar paraspinal muscles are not tender and are without spasm. : normal external genitalia, without lesions, swelling, masses or tenderness. Musculoskeletal: Extremities, normal range of motion, non-tender, muscle strength 5/5 x 4. Negative Homans signs bilaterally on lower extremity. Distal pulses full symmetrical, no clubbing, cyanosis , edema. Neurological: Speech is clear, alert, and oriented x 4. No motor or sensory deficit, deep tendon reflexes normal, cerebellar intact. Cranial nerves II-XII intact. Psych: Alert and or appropriate, normal affect. Vascular: Good distal pulses, which are equal x4; capillary refill less than 2 seconds. Lymphatic, no lymphadenopathy. Result Diagram: 12/07/24220912/07/242209 Problem\Assessment\Plan Assessment/ Plan Morbid obesity BMI 49 Hypertensive emergency Patient reported symptoms of dizziness, blurry vision and headaches prior to the arrival. CT scan of the head was done which was negative for any acute intracranial abnormalities. MRI of the head pending Chest x-ray shows bilateral interstitial opacities. The patient's CBC and CMP does not show significant abnormalities. Follow up with the ECHO. He was started on IV nicardipine drip at 5 mg/hour. Starting the patient on a p.o. amlodipine 10 mg daily and labetalol 200 mg b.i.d. The patient's blood pressure is currently under control. We will discontinue IV nicardipine drip and monitor. Spoke to the patient about lifestyle modifications including diet and exercise. Also spoke with the patient regarding the importance of establishing a PCP and maintaining compliance with the antihypertensive medication. Diastolic CHF in exacerbation, patient on lisinopril, Lasix Type 2 VT, on aspirin, heparin prophylactic dose, lisinopril Most likely due to demand ischemia in view of hypertensive emergency. Continue close monitoring of the patient's vitals. Continue telemetry monitoring. Additional lab work pending Nutrition consult Neurology consult completed recommendation to be implemented MRI of the head unable to perform secondary to patient habitus 185 kg CODE STATUS: Full code DVT prophylaxis: Lovenox GI prophylaxis: None Diet: Heart healthy Sepsis Screening Reassessment Date: Dec 09, 2024 Date of Service: Dec 09, 2024 Billing Provider: TYRA CHOWDHURY MD Common Visit Codes: [id number] INP/OBS CARE(HIGH) TYRA CHOWDHURY MD Dec 09, 2024 19:25
[2024-12-10 02:00] VITALS: BP 116/65; PULSE 66; RESP 23; TEMP 97.4; O2SAT 95
--- NOTE | 2024-12-10 05:33 | CARDIOLOGY REPORT ---
APPROVED REPORT EXAM: Limited 2D and color-flow Echocardiogram with saline. 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 Overall systolic function appears normal. LVEF is 60%. RIGHT VENTRICLE RV appears mildly dilated with normal contractility. ATRIA Saline study was performed with 2 IV injections of 10 ccs of agitated normal saline at rest, with cough, and with valsalva. Negative saline study for right to left flow. TRICUSPID VALVE The tricuspid valve is normal in structure. Trace tricuspid regurgitation. PERICARDIUM There is no pericardial effusion. Other Information Study Quality: Adequate Conclusion LV appears normal in size with moderate concentric hypertrophy. Overall systolic function appears normal. LVEF is 60%. RV appears mildly dilated with normal contractility. Saline study was performed with 2 IV injections of 10 ccs of agitated normal saline at rest, with cough, and with valsalva. Negative saline study for right to left flow. The tricuspid valve is normal in structure. Trace tricuspid regurgitation. There is no pericardial effusion.
[2024-12-10 06:00] VITALS: BP 123/72; PULSE 68; RESP 13; TEMP 98.2; O2SAT 93
[2024-12-10 07:37] VITALS: BP_SYST 123; PULSE 68
[2024-12-10 08:00] VITALS: RESP 13; O2SAT 93
[2024-12-10] MEDS ORDERED: AMLO-888 PO (11:23)
[2024-12-10] MEDS ORDERED: ASPI81TA52 PO (11:23)
[2024-12-10] MEDS ORDERED: CLON0.1T2 PO (11:23)
[2024-12-10] MEDS ORDERED: CLOP-32 PO (11:23)
[2024-12-10] MEDS ORDERED: ATOR20TA66 PO (11:23)
--- NOTE | 2024-12-10 16:01 | DISCHARGE SUMMARY ---
Discharge Summary Providers to No new complaint today asking to be discharged home for family emergency reasons ~ Discharge Summary Assessment Hypertensive emergency Morbid obesity Non ST-elevation CA type 2 secondary to hypertensive emergency Mild Left-sided paresthesia, resolved Diastolic CHF in exacerbation Admission Diagnosis: hypertensive emergency Admission Diagnosis Comment: Hypertensive emergency Morbid obesity Non ST-elevation CA type 2 secondary to hypertensive emergency Mild Left-sided paresthesia, resolved Diastolic CHF in exacerbation Hospital Course DATE OF ADMISSION: December 08, 2024 DATE OF DISCHARGE: December 10, 2024 Discharge Diagnosis\Comment: Hypertensive emergency Morbid obesity Non ST-elevation CA type 2 secondary to hypertensive emergency Mild Left-sided paresthesia, resolved Diastolic CHF in exacerbation Operations\Procedures: Non Consultants: ICU , virtual neurologist Complications: Non Condition on DC: Stable Discharge Summary: Patient presents to the emergency room for concerns of blood pressure. Patient has history of high blood pressure was seen a proximally one year ago that has given some amlodipine but never followed up. He notes that has day-to-day blood pressure ranges from about 242-90 systolic. He did not noticed that over the past few days he has had some blurred vision which got worse in the lobby. Significant other at bedside also endorses that has not quite acting like himself. Denies chest pain or headache. After admission patient was extensively evaluated including in ICU blood pressure stabilized, today he is feeling better asking to be discharged home for family emergency reasons, medication reconciled, he will be discharged in stable condition follow-up PCP Neurology and Cardiology in two days, recommended to return to emergency department if condition worsens, today on physical exam Vital signs, stable ,afebrile. Pulse Oximetry reflects adequate oxygenation. General: well developed, well nourished. Awake , alert, and oriented x4, resting comfortably in the bed, in no acute distress . Skin: Warm, dry, no pallor, no rash or petechiae. HEENT: Atraumatic, normocephalic, EOMI, anicteric sclera B; pink conjunctiva; PERRLA, normal oropharynx, moist oral and nasal mucosa. Tympanic membrane , nose , throat clear. Neck: Trachea midline. Supple, full range of motion, no JVD, bruit , hepatojugular reflex , lymphadenopathy or masses, or other lesions Cardiac: Regular rhythm, regular rate no murmurs, rubs, or gallops. Normal S1 and S2, no S3 noticed. PMI is normal. Respiratory: Equal breath sounds bilaterally, no tachypnea; lungs clear to auscultation bilaterally, no wheezing ,rub or rales, or crackles. Chest wall is symmetric and without deformity. No signs of trauma. Chest wall is nontender. No signs of respiratory distress. Resonance is normal upon percussion bilaterally. Gastrointestinal: Abdomen symmetric, non-distended, soft, non-tender, normal bowel sounds x4 quadrant, normoactive, no hepatosplenomegaly , no masses , no bruit, no flank pain bilaterally. No voluntary guarding, rebound, or rigidity. No tenderness to percussion. No pulsatile masses. Equal femoral pulses. No Campbell's sign or McBurney point tenderness. Back; no CVA tenderness bilaterally, no deformities. Neck and back are without deformity as well. No tenderness noted on palpation of the spinous processes. Spinous processes are midline. Cervical, thoracic, and lumbar paraspinal muscles are not tender and are without spasm. : normal external genitalia, without lesions, swelling, masses or tenderness. Musculoskeletal: Extremities, normal range of motion, non-tender, muscle strength 5/5 x 4. Negative Homans signs bilaterally on lower extremity. Distal pulses full symmetrical, no clubbing, cyanosis , edema. Neurological: Speech is clear, alert, and oriented x 4. No motor or sensory deficit, deep tendon reflexes normal, cerebellar intact. Cranial nerves II-XII intact. Psych: Alert and or appropriate, normal affect. Vascular: Good distal pulses, which are equal x4; capillary refill less than 2 seconds. Lymphatic, no lymphadenopathy. *Problems/Diagnosis: (1) Hypertensive emergency Status: Acute Total Time Spent on D/C: > 30 Minutes Date of Service: Dec 10, 2024 Billing Provider: TYRA CHOWDHURY MD Common Visit Codes: 00067-[id number] DISCH DAY >30min TYRA CHOWDHURY MD Dec 10, 2024 16:01
== END 2024-12-10 12:01 | disposition home or self-care (01) | DRG 280 ==
LOC: ER 21:39 → CICU 2S 12-08 03:03 → PCU 3S 12-08 16:58
PROVIDERS: ADMIT Internal Medicine; ATTEND Internal Medicine
DX: I16.1 Hypertensive emergency (principal); I50.33 Acute on chronic diastolic (congestive) heart failure; I21.A1 Myocardial infarction type 2; Z68.42 Body mass index [BMI] 45.0-49.9, adult; E66.01 Morbid (severe) obesity due to excess calories; I11.0 Hypertensive heart disease with heart failure; R20.2 Paresthesia of skin; Z79.899 Other long term (current) drug therapy; Z91.148 Patient's other noncompliance with medication regimen for other reason
CPT/HCPCS: 36415; 70450; 71045; 80048; 80305; 82550; 83036; 83690; 83735; 83880; 84100; 84443; 84484; 85025; 87081; 93005; 93306; 93308; 93880; 99291; A4615; G0378; J0360; J1650; J1938; J3490

== ENCOUNTER 2024-12-12 14:42 | Emergency (ER) | payer OTHER ==
[~2024-12-12] VITALS: Ht 193 cm; Wt 145.2 kg
[~2024-12-12 14:42] MED LIST changes: +AMLO-888 PO; -AMLO5TAB4 PO; +ASPI81TA52 PO; +ATOR20TA66 PO; +CLON0.1T2 PO; +CLOP-32 PO; -CYCL-1 PO; -IBUP-1986 PO; +NO HOME MEDS; -TERB30CR8 TP
--- NOTE | 2024-12-12 15:01 | Physician Documentation ---
History of Present Illness Stated Complaint: RIGHT HAND PAIN Primary Medical Doctor: NONE HPI Is a 39-year-old male who reports to the emergency department after presenting to urgent care for swelling in his right hand and right forearm. Patient reports that he was discharged from the ICU here at [facility] on Thursday. Patient reports that the site of swelling in his consistent with the area that he had an IV in and may have had some infiltration at that time he is unsure. Patient denies any fever chills nausea vomiting diarrhea. Patient does report pain tenderness to the touch and moderate swelling in the right hand. Medication Reconciliation Allergies: Coded Allergies: No Known Allergies (Unverified , 12/07/24) Scheduled Amlodipine Besylate (Norvasc), 1 TAB PO DAILY Aspirin (Aspirin EC), 1 TAB PO DAILY Atorvastatin Calcium (LIPITOR tablet), 1 TAB PO DAILY Clonidine HCl (Clonidine HCl), 1 TAB PO HS Clopidogrel Bisulfate (Plavix), 75 MG PO DAILY Miscellaneous Medications Home Med List (No Home Medications), (Reported) Discontinued Medications Amlodipine Besylate (Norvasc), 1 TAB PO DAILY Discontinued Reason: patient no longer taking Cyclobenzaprine* (Cyclobenzaprine*), 1 TAB PO Q8H Discontinued Reason: patient no longer taking Ibuprofen (Ibuprofen), 1 TAB PO Q8H Discontinued Reason: patient no longer taking Terbinafine Hcl (Terbinafine Hcl), 30 GM TP BID Discontinued Reason: patient no longer taking Past Medical History Past Medical History: No Pertinent History, Hypertension Past Surgical History: no surgical history, orthopedic surgeries Drug Use: none Lives with: Spouse Lives In: Home Review of Systems ROS As stated above in the HPI, otherwise all systems are reviewed and negative. Physical Exam Physical Exam VITALS: Reviewed and as above. GENERAL: Alert, no apparent distress. HEENT: Normocephalic, atraumatic, PERRL, EOMI, dry mucosa, no erythema RESPIRATORY: Lungs clear, normal breath sounds, no respiratory distress. CHEST: No accessory muscle use, no retractions CV: Regular rate, rhythm, no edema, no murmur, No: JVD GI: Soft, non-tender, bowels sounds present, no rebound, guarding, or rigidity BACK: No CVA tenderness, or swelling MUSCULOSKELETAL No deformities, admit dorsal aspect of the right hand extending onto the wrist with erythema noted, presents with palpation reduced range of motion due to tenderness. SKIN: Warm and dry, erythema and edema noted to the dorsal aspect of the right hand extending onto the wrist and forearm. NEURO: Oriented x4, No motor or sensory deficit PSYCH: Normal mood and affect, no agitation Medical Decision Making Additional info obtained from: other Findings This patient presents with initial presentation of local erythema, warmth, swelling concerning for phlebitis. Sensitivity/pain to light touch around the erythematous area. No lymphangitic spread visible and no fluid pockets or fluctuance concerning for abscess noted. Vascular ultrasound results show No evidence of deep venous thrombosis. Likely subacute occlusion of the cephalic vein (a superficial vein) at the wrist . The more superior cephalic vein at the biceps brachii is patent. Likely has concurrent phlebitis. Patient is currently anticoagulated for a separate issue prior to today's presentation. Low concern for osteomyelitis. No immune compromise, bullae, pain out of proportion, or rapid progression concerning for necrotizing fasciitis. Patient given 800 mg of ibuprofen prior to discharge. Patient educated on the need for NSAIDs warm compresses symptom management rest of that hand for the next couple of days. Patient educated on the need to follow up with his primary care provider in 1 week to re-evaluate symptoms or sooner if symptoms worsen. Patient will return to the emergency department with any worsening of his current symptoms or any additional concerning symptoms that we discussed here today i.e. increased pain increased swelling increased redness numbness tingling in the affected extremity coolness to the touch paleness to the extremity fever chills nausea vomiting diarrhea or any other concerning symptoms that we discussed here today. Differential Dx:Considerations: Include: AAA, Angina/OH, Aortic dissection, Appendicitis, Bowel obstruction, Cholangitis, Cholelithasis, Constipation, Diverticular disease, Esophageal rupture, Esophagitis, Gastritis/PUD, Gastroenteritis, GI hemorrhage, Hernia, Hepatitis, Inflammatory BD, Ischemic bowel, Pancreatitis, Porphyria, Testicular torsion, Trauma, intraabdominal, Urinary obstruction, Urinary tract infection, Urolithiasis, Other Departure Disposition: 01 HOME / SELF CARE / HOMELESS Impression: Primary Impression: Phlebitis after infusion Additional Impressions: Pain in right hand Swelling of right hand Discharge Instructions: Phlebitis, [id number] Additional Instructions: This patient presents with initial presentation of local erythema, warmth, swelling concerning for phlebitis. Sensitivity/pain to light touch around the erythematous area. No lymphangitic spread visible and no fluid pockets or fluctuance concerning for abscess noted. Vascular ultrasound results show No evidence of deep venous thrombosis. Likely subacute occlusion of the cephalic vein (a superficial vein) at the wrist. The more superior cephalic vein at the biceps brachii is patent. Likely has concurrent phlebitis. Patient is currently anticoagulated for a separate issue prior to today's presentation. Low concern for osteomyelitis. No immune compromise, bullae, pain out of proportion, or rapid progression concerning for necrotizing fasciitis. Patient given 800 mg of ibuprofen prior to discharge. Patient educated on the need for NSAIDs warm compresses symptom management rest of that hand for the next couple of days. Patient educated on the need to follow up with his primary care provider in 1 week to re-evaluate symptoms or sooner if symptoms worsen. Patient will return to the emergency department with any worsening of his current symptoms or any additional concerning symptoms that we discussed here today i.e. increased pain increased swelling increased redness numbness tingling in the affected extremity coolness to the touch paleness to the extremity fever chills nausea vomiting diarrhea or any other concerning symptoms that we discussed here today. Departure Forms: Excuse form Work or School Excused From: Work Excuse beginning now through the following date: Dec 12, 2024 May Return but still avoid physical Activity from now until: Dec 15, 2024 May Return to full physical activity as of: Dec 15, 2024 Referrals: NO PRIMARY CARE PROVIDER (PCP) Education Educated: Patient Educated regarding: diagnosis, treatment, need for follow up Signature Scribe Signature: A Attestation: Scribed for Karuna Sesay by SHO Holguin . 12/12/24 20:32 KARUNA SESAY Dec 12, 2024 15:01
[2024-12-12] MEDS: ibuprofen tablet 400 MG TABLET PO ONE (19:54)
--- NOTE | 2024-12-12 20:10 | VASCULAR REPORT ---
RIGHT UPPER EXTREMITY VENOUS DUPLEX REASON FOR EXAMINATION: Right upper extremity pain and edema COMPARISON: None TECHNIQUE: Using real-time freeze-frame technique with a high-frequency transducer, multiple longitudinal and transverse sections were obtained. Simultaneous color flow and spectral Doppler imaging was performed. FINDINGS: Deep veins Internal jugular vein: Compressible. No thrombus identified. Expected Doppler flow. Subclavian vein: Expected Doppler flow. Axillary vein: Compressible. No thrombus identified. Expected Doppler flow. Brachial vein: Compressible. No thrombus identified. Expected Doppler flow. Radial vein: Compressible. No thrombus identified. Expected Doppler flow. Ulnar vein: Compressible. No thrombus identified. Expected Doppler flow. Superficial veins Cephalic vein: Compressible at the level of the biceps brachii. Occlusive, subacute appearing thrombus in the cephalic vein at the wrist. Basilic vein: Compressible. No thrombus identified. Expected Doppler flow. IMPRESSION: No evidence of deep venous thrombosis. Likely subacute occlusion of the cephalic vein (a superficial vein) at the wrist. The more superior cephalic vein at the biceps brachii is patent.
[2024-12-12 20:33] LABS: CREATININE 0.88 MG/DL (0.60-1.10); TOTAL CARBON DIOXIDE 28.5 MMOL/L (24-32); eCRCL 136 ML/MIN; eGFR > 90 ML/MIN
[2024-12-12 20:44] VITALS: BP 209/122; PULSE 82; RESP 20; TEMP 98.6; O2SAT 99
== END 2024-12-12 20:45 | disposition home or self-care (01) ==
LOC: ER 14:43
DX: T80.1XXA Vascular complications following infusion, transfusion and therapeutic injection, initial encounter (principal); M79.641 Pain in right hand; M79.89 Other specified soft tissue disorders; I10 Essential (primary) hypertension; Z79.82 Long term (current) use of aspirin; Z79.899 Other long term (current) drug therapy; Z98.890 Other specified postprocedural states
CPT/HCPCS: 80053; 83605; 93971; 99284